=== PATIENT | male | born 1970 | race Caucasian/White ===

== ENCOUNTER 2018-10-17 15:09 | Inpatient (IN) | payer MEDICAID, OTHER ==
[~2018-10-17] VITALS: Ht 180.3 cm; Wt 92.6 kg
[2018-10-17 15:52] LABS: MEAN CORPUSCULAR HEMOGLOBIN 30.3 pg (27.5-34.5); MEAN CORPUSCULAR HGB CONC 33.5 g/dL (33.2-36.2); MEAN CORPUSCULAR VOLUME 90.4 fL (81-97); MEAN PLATELET VOLUME 8.7 fL (7.4-10.4); PLATELET COUNT 165 x10^3/uL (130-400); RED CELL DISTRIBUTION WIDTH 13.6 % (9.4-14.8)
[2018-10-17 15:56] LABS: ANION GAP 7 mmol/L (5-15); CALCIUM 8.1 mg/dL (8.5-10.1); CHLORIDE 105 mmol/L (98-107)
[2018-10-17 16:15] LABS: BASOPHILS # (AUTO) 0.03 x10^3/uL (0-0.1); BASOPHILS % (AUTO) 0 % (0-1); EOSINOPHILS # (AUTO) 0.04 x10^3/uL (0-0.4); EOSINOPHILS % (AUTO) 0 % (1-7); LYMPHOCYTES # (AUTO) 1.28 x10^3/uL (1-3.4); LYMPHOCYTES % (AUTO) 7 % (22-44); MD SCAN; MONOCYTES # (AUTO) 1.19 x10^3/uL (0.2-0.8); MONOCYTES % (AUTO) 7 % (2-9); NEUTROPHILS # (AUTO) 15.34 x10^3/uL (1.8-6.8); NEUTROPHILS % (AUTO) 86 % (42-75)
[2018-10-17] MEDS ORDERED: SODIUM CHLORIDE FLUSH 10ML SYR IVF ONE (16:30)
[2018-10-17] MEDS ORDERED: VANCOMYCIN PER PHARMACY MC ONE (16:30)
[2018-10-17] MEDS ORDERED: PHARMACOKINETIC CONSULTATION MC ONE (16:30)
[2018-10-17] MEDS ORDERED: VANCOMYCIN 1,800 MG in SODIUM CHLORIDE 0.9% 250 ML IV ONE (16:30)
[2018-10-17] MEDS ORDERED: ONDANSETRON ODT 4 MG PO PRN (17:30)
[2018-10-17] MEDS ORDERED: BISACODYL 10 MG SUPP PR PRN (17:30)
[2018-10-17] MEDS ORDERED: ONDANSETRON 2MG/ML, 2ML IVPush PRN (17:30)
[2018-10-17] MEDS ORDERED: ENALAPRILAT 1.25 MG/ML, 2ML IVPush PRN (17:30)
[2018-10-17] MEDS ORDERED: DOCUSATE 100 MG CAPSULE PO PRN (17:30)
[2018-10-17] MEDS ORDERED: hydrALAzine 20 MG/ML, 1ML IVPush PRN (17:30)
[2018-10-17 18:00] VITALS: BP 133/77
[2018-10-17 19:37] VITALS: BP 128/78
[2018-10-17] MEDS: SODIUM CHLORIDE 0.9% 1,000 ML IV SCH (20:14)
[2018-10-17] MEDS: AMPICILLIN/SULBACTAM 3 GM in SODIUM CHLORIDE 0.9% 100 ML IV SCH (20:16)
[2018-10-17] MEDS: ACETAMINOPHEN 325 MG TABLET PO PRN (20:17)
[2018-10-17] MEDS: ENOXAPARIN 40 MG/0.4 ML SQ SCH (20:17)
[2018-10-17] MEDS: KETOROLAC 30 MG/1 ML IV PRN (20:17)
[2018-10-17 21:30] VITALS: BP 113/49
[2018-10-18 02:00] VITALS: BP 116/71
[2018-10-18] MEDS: AMPICILLIN/SULBACTAM 3 GM in SODIUM CHLORIDE 0.9% 100 ML IV SCH ×4 (02:29→21:09)
[2018-10-18 02:47] VITALS: BP 128/76
[2018-10-18 05:02] LABS: ALBUMIN 2.2 g/dL (3.4-5.0); ANION GAP 7 mmol/L (5-15); BASOPHILS # (AUTO) 0.04 x10^3/uL (0-0.1); BASOPHILS % (AUTO) 0 % (0-1); CALCIUM 8.2 mg/dL (8.5-10.1); CHLORIDE 109 mmol/L (98-107); EOSINOPHILS # (AUTO) 0.09 x10^3/uL (0-0.4); EOSINOPHILS % (AUTO) 1 % (1-7); LYMPHOCYTES # (AUTO) 1.52 x10^3/uL (1-3.4); LYMPHOCYTES % (AUTO) 13 % (22-44); MD NO; MEAN CORPUSCULAR HEMOGLOBIN 30.8 pg (27.5-34.5); MEAN CORPUSCULAR HGB CONC 33.9 g/dL (33.2-36.2); MEAN CORPUSCULAR VOLUME 90.9 fL (81-97); MONOCYTES # (AUTO) 1.17 x10^3/uL (0.2-0.8); MONOCYTES % (AUTO) 10 % (2-9); NEUTROPHILS # (AUTO) 9.28 x10^3/uL (1.8-6.8); NEUTROPHILS % (AUTO) 77 % (42-75); PLATELET COUNT 154 x10^3/uL (130-400); RED BLOOD COUNT 4.34 x10^6/uL (4.38-5.82); RED CELL DISTRIBUTION WIDTH 13.7 % (9.4-14.8)
[2018-10-18 05:15] LABS: ALANINE AMINOTRANSFERASE 52 U/L (12-78); ALKALINE PHOSPHATASE 98 U/L (45-117); BILIRUBIN,TOTAL 0.5 mg/dL (0.2-1.0); CHOL/HDL RATIO 4.2; CHOLESTEROL, TOTAL 135 mg/dL (140-239); HDL CHOL % 24 % (26-37); HDL CHOLESTEROL (DIRECT) 32 mg/dL (40-60); LDL CHOLESTEROL,CALCULATED 72 mg/dL (54-169); LDL/HDL RATIO 2.3 (0.5-3.0); TOTAL PROTEIN 5.9 g/dL (6.4-8.2); TRIGLYCERIDES 154 mg/dL (50-200); VLDL CHOLESTEROL 31 mg/dL (0-25)
[2018-10-18] MEDS: SODIUM CHLORIDE 0.9% 1,000 ML IV SCH ×2 (06:05→16:31)
[2018-10-18] MEDS ORDERED: POTASSIUM CHLORIDE 20 MEQ TAB.ER.PRT PO ONE (06:30)
[2018-10-18 07:35] VITALS: BP 111/66
[2018-10-18] MEDS: SENNA/DOCUSATE TABLET PO SCH (09:16)
[2018-10-18] MEDS: LEVOTHYROXINE 25 MCG TABLET PO SCH (09:19)
[2018-10-18 12:29] VITALS: BP 106/54
[2018-10-18] MEDS: KETOROLAC 30 MG/1 ML IV PRN (13:41)
[2018-10-18] MEDS: HYDROcodone/APAP 5/325 TABLET PO PRN ×2 (14:44→21:09)
[2018-10-18 19:47] VITALS: BP 117/64
[2018-10-18] MEDS: ENOXAPARIN 40 MG/0.4 ML SQ SCH (20:02)
[2018-10-19 02:00] VITALS: BP 105/66
[2018-10-19] MEDS: SODIUM CHLORIDE 0.9% 1,000 ML IV SCH ×2 (02:09→12:00)
[2018-10-19] MEDS: KETOROLAC 30 MG/1 ML IV PRN (02:10)
[2018-10-19] MEDS: LEVOTHYROXINE 25 MCG TABLET PO SCH (05:18)
[2018-10-19] MEDS: HYDROcodone/APAP 5/325 TABLET PO PRN ×2 (05:18→16:18)
[2018-10-19] MEDS: AMPICILLIN/SULBACTAM 3 GM in SODIUM CHLORIDE 0.9% 100 ML IV SCH ×3 (05:18→16:00)
[2018-10-19 06:46] VITALS: BP 106/61
[2018-10-19] MEDS: SENNA/DOCUSATE TABLET PO SCH (07:51)
[2018-10-19] MEDS ORDERED: LEVO25TA2 PO (09:47)
[2018-10-19] MEDS ORDERED: ACET325T14 PO (09:47)
[2018-10-19] MEDS ORDERED: AMOX1TAB64 PO (09:47)
[2018-10-19] MEDS ORDERED: SERT25TA PO (09:47)
[2018-10-19 10:24] LABS: MEAN CORPUSCULAR HEMOGLOBIN 30.4 pg (27.5-34.5); MEAN CORPUSCULAR HGB CONC 33.3 g/dL (33.2-36.2); MEAN CORPUSCULAR VOLUME 91.2 fL (81-97); MEAN PLATELET VOLUME 8.8 fL (7.4-10.4); PLATELET COUNT 179 x10^3/uL (130-400); RED BLOOD COUNT 4.17 x10^6/uL (4.38-5.82); RED CELL DISTRIBUTION WIDTH 13.6 % (9.4-14.8)
[2018-10-19 10:25] LABS: BASOPHILS # (AUTO) 0.03 x10^3/uL (0-0.1); BASOPHILS % (AUTO) 1 % (0-1); EOSINOPHILS # (AUTO) 0.15 x10^3/uL (0-0.4); EOSINOPHILS % (AUTO) 2 % (1-7); LYMPHOCYTES # (AUTO) 1.62 x10^3/uL (1-3.4); LYMPHOCYTES % (AUTO) 27 % (22-44); MD NO; MONOCYTES # (AUTO) 0.52 x10^3/uL (0.2-0.8); MONOCYTES % (AUTO) 9 % (2-9); NEUTROPHILS # (AUTO) 3.78 x10^3/uL (1.8-6.8); NEUTROPHILS % (AUTO) 62 % (42-75)
[2018-10-19 10:40] LABS: ANION GAP 5 mmol/L (5-15); CALCIUM 8.2 mg/dL (8.5-10.1); CHLORIDE 111 mmol/L (98-107); CREATININE 0.74 mg/dL (0.7-1.3)
[2018-10-19 13:07] VITALS: BP 100/50
[2018-10-19] MEDS ORDERED: DOXY100T PO (13:18)
[2018-10-19] MEDS: ACETAMINOPHEN 325 MG TABLET PO PRN (14:07)
== END 2018-10-19 16:55 | disposition home or self-care (01) | DRG 603 ==
LOC: ED 16:36 → EDIP 16:59 → UNDOADMIN 17:13 → EDIP 17:13 → 3NE 18:44
PROVIDERS: ADMIT Internal Medicine; ATTEND Internal Medicine
DX: L03.116 Cellulitis of left lower limb (principal); F15.90 Other stimulant use, unspecified, uncomplicated; F32.9 Major depressive disorder, single episode, unspecified; E87.6 Hypokalemia; A49.01 Methicillin susceptible Staphylococcus aureus infection, unspecified site; E03.9 Hypothyroidism, unspecified; Z87.891 Personal history of nicotine dependence
CPT/HCPCS: 36415; 80048; 80053; 80061; 83605; 83735; 84145; 84439; 84443; 85025; 87040; 87070; 87077; 87147; 87186; 87205; G0378; J0295; J1650; J1885; J3370; J7030; J7050

== ENCOUNTER 2018-10-19 21:57 | Emergency (ER) | payer MEDICAID, OTHER ==
[~2018-10-19] VITALS: Ht 180.3 cm; Wt 89.0 kg
[~2018-10-19 21:57] MED LIST: ACET325T14 PO; AMOX1TAB64 PO; DOXY100T PO; LEVO25TA2 PO; SERT25TA PO
[2018-10-19 22:00] VITALS: BP 140/94
--- NOTE | 2018-10-19 22:33 | NUR ---
PT GIVEN DC INSTRUCTIONS AND SCRIPTS. PT EDUCATED REGARDING DC MEDICATIONS. PT WHEELED TO DC WITH PT'S . NO ACUTE DISTRESS AT DC.
== END 2018-10-19 22:41 | disposition home or self-care (01) ==
LOC: ED 22:37
DX: L03.116 Cellulitis of left lower limb (principal); E03.9 Hypothyroidism, unspecified; F32.9 Major depressive disorder, single episode, unspecified
CPT/HCPCS: 99283

== ENCOUNTER 2019-08-05 00:39 | Emergency (ER) | payer MEDICAID ==
[~2019-08-05] VITALS: Ht 180.3 cm; Wt 87.0 kg
[2019-08-05 00:46] VITALS: BP 128/80
--- NOTE | 2019-08-05 01:46 | NUR ---
pt to room from lobby
[2019-08-05] MEDS ORDERED: LIDOCAINE-MPF 1%, 5ML ONE (02:27)
[2019-08-05] MEDS ORDERED: HYDROcodone/APAP 5/325 TABLET ONE (02:28)
[2019-08-05] MEDS ORDERED: LIDOCAINE 1%, 10ML INFIL ONE (02:30)
[2019-08-05] MEDS ORDERED: HYDROcodone/APAP 5/325 TABLET PO ONE (02:30)
--- NOTE | 2019-08-05 02:50 | NUR ---
RN to bedside, administered medications (see MAR) and set up for synovial fluid draw. Provider to bedside for synovial fluid draw. Fluid drawn and hand carried to laboratory. Patient provided and oriented to call light system. All questions answered, awaiting results.
[2019-08-05] MEDS ORDERED: SULFAMETH./TRIMETHOPRIM DS 800MG/160MG TABLET PO ONE (05:00)
[2019-08-05] MEDS ORDERED: CEPHALEXIN 500 MG CAPSULE PO ONE (05:00)
== END 2019-08-05 04:51 | disposition home or self-care (01) ==
LOC: ED 04:45
DX: L03.115 Cellulitis of right lower limb (principal); Z76.0 Encounter for issue of repeat prescription; E05.90 Thyrotoxicosis, unspecified without thyrotoxic crisis or storm; F17.200 Nicotine dependence, unspecified, uncomplicated
CPT/HCPCS: 20605; 85810; 89050; 89060; 99284

== ENCOUNTER 2019-08-11 12:53 | Inpatient (IN) | payer MEDICAID ==
[~2019-08-11] VITALS: Ht 180.3 cm; Wt 85.3 kg
--- NOTE | 2019-08-11 13:18 | NUR ---
requested records from [facility]
[2019-08-11] MEDS ORDERED: HYDROcodone/APAP 5/325 TABLET PO ONE (13:30)
[2019-08-11] MEDS ORDERED: KETOROLAC 30 MG/1 ML IM ONE (13:30)
[2019-08-11] MEDS ORDERED: KETOROLAC 30 MG/1 ML ONE (13:42)
[2019-08-11] MEDS ORDERED: HYDROcodone/APAP 5/325 TABLET ONE (13:42)
--- NOTE | 2019-08-11 13:53 | NUR ---
2nd request for records from [facility]
--- NOTE | 2019-08-11 14:17 | NUR ---
received records from [facility]
[2019-08-11] MEDS ORDERED: SODIUM CHLORIDE FLUSH 10ML SYR IVF ONE (14:30)
[2019-08-11 14:41] LABS: BASOPHILS # (AUTO) 0.04 x10^3/uL (0-0.1); BASOPHILS % (AUTO) 0 % (0-1); EOSINOPHILS # (AUTO) 0.09 x10^3/uL (0-0.4); EOSINOPHILS % (AUTO) 1 % (1-7); LYMPHOCYTES # (AUTO) 1.54 x10^3/uL (1-3.4); LYMPHOCYTES % (AUTO) 14 % (22-44); MD NO; MEAN CORPUSCULAR HEMOGLOBIN 31.3 pg (27.5-34.5); MEAN CORPUSCULAR HGB CONC 33.2 g/dL (33.2-36.2); MEAN CORPUSCULAR VOLUME 94.3 fL (81-97); MEAN PLATELET VOLUME 8.4 fL (7.4-10.4); MONOCYTES # (AUTO) 0.79 x10^3/uL (0.2-0.8); MONOCYTES % (AUTO) 7 % (2-9); NEUTROPHILS # (AUTO) 8.35 x10^3/uL (1.8-6.8); NEUTROPHILS % (AUTO) 77 % (42-75); PLATELET COUNT 251 x10^3/uL (130-400); RED BLOOD COUNT 5.08 x10^6/uL (4.38-5.82); RED CELL DISTRIBUTION WIDTH 12.6 % (9.4-14.8)
[2019-08-11 14:52] LABS: ALBUMIN 3.3 g/dL (3.4-5.0); ANION GAP 4 mmol/L (5-15); CHLORIDE 107 mmol/L (98-107); CREATININE 0.94 mg/dL (0.7-1.3)
[2019-08-11] MEDS ORDERED: VANCOMYCIN 1,800 MG in SODIUM CHLORIDE 0.9% 250 ML IV ONE (16:30)
[2019-08-11] MEDS ORDERED: VANCOMYCIN PER PHARMACY MC PRN ×2 (16:30)
[2019-08-11] MEDS ORDERED: AMPICILLIN/SULBACTAM 3 GM in SODIUM CHLORIDE 0.9% 100 ML IV ONE (16:30)
--- NOTE | 2019-08-11 16:49 | NUR ---
LACERATION TO LEFT JAW WITH SUTURES. AIR POCKETS ON RIGHT SIDE FOUND ON CT
[2019-08-11] MEDS ORDERED: ACETAMINOPHEN 325 MG TABLET PO PRN (17:00)
[2019-08-11] MEDS ORDERED: ONDANSETRON 2MG/ML, 2ML IVPush PRN (17:00)
[2019-08-11] MEDS ORDERED: IBUPROFEN 600 MG TABLET PO PRN ×2 (17:00→18:07)
[2019-08-11] MEDS ORDERED: KETOROLAC 30 MG/1 ML IV PRN ×2 (17:00→18:02)
[2019-08-11] MEDS ORDERED: ONDANSETRON ODT 4 MG PO PRN (17:00)
[2019-08-11] MEDS ORDERED: MORPHINE SULFATE 4 MG/ML, 1ML IVPush PRN (17:00)
[2019-08-11] MEDS: AMPICILLIN/SULBACTAM 3 GM in SODIUM CHLORIDE 0.9% 100 ML IV SCH ×2 (17:45→22:47)
[2019-08-11] MEDS ORDERED: OMNIPAQUE 350 MG/ML, 75ML BOTTLE ONE (17:56)
[2019-08-11] MEDS: SODIUM CHLORIDE 0.9% 1,000 ML IV SCH (18:00)
[2019-08-11] MEDS ORDERED: PHARMACOKINETIC MONITORING MC PRN (18:00)
[2019-08-11 18:12] VITALS: BP 114/75
[2019-08-11 19:15] VITALS: BP 118/72
[2019-08-11] MEDS: NICOTINE 7 MG/24 HR PATCH.TD24 TD SCH (21:00)
[2019-08-12 00:16] VITALS: BP 115/70
[2019-08-12] MEDS: SODIUM CHLORIDE 0.9% 1,000 ML IV SCH ×2 (04:23→21:12)
[2019-08-12] MEDS: AMPICILLIN/SULBACTAM 3 GM in SODIUM CHLORIDE 0.9% 100 ML IV SCH ×4 (04:23→22:39)
[2019-08-12] MEDS: LEVOTHYROXINE 25 MCG TABLET PO SCH (05:17)
[2019-08-12 05:19] LABS: BASOPHILS # (AUTO) 0.07 x10^3/uL (0-0.1); BASOPHILS % (AUTO) 1 % (0-1); EOSINOPHILS # (AUTO) 0.17 x10^3/uL (0-0.4); EOSINOPHILS % (AUTO) 2 % (1-7); LYMPHOCYTES # (AUTO) 2.11 x10^3/uL (1-3.4); LYMPHOCYTES % (AUTO) 26 % (22-44); MD NO; MEAN CORPUSCULAR HEMOGLOBIN 31.3 pg (27.5-34.5); MEAN CORPUSCULAR HGB CONC 33.1 g/dL (33.2-36.2); MEAN CORPUSCULAR VOLUME 94.7 fL (81-97); MEAN PLATELET VOLUME 8.7 fL (7.4-10.4); MONOCYTES # (AUTO) 0.65 x10^3/uL (0.2-0.8); MONOCYTES % (AUTO) 8 % (2-9); NEUTROPHILS # (AUTO) 5.08 x10^3/uL (1.8-6.8); NEUTROPHILS % (AUTO) 63 % (42-75); PLATELET COUNT 250 x10^3/uL (130-400); RED BLOOD COUNT 4.63 x10^6/uL (4.38-5.82); RED CELL DISTRIBUTION WIDTH 12.4 % (9.4-14.8)
[2019-08-12 05:20] LABS: CALCIUM 8.4 mg/dL (8.5-10.1); CHLORIDE 110 mmol/L (98-107)
[2019-08-12] MEDS: VANCOMYCIN 1,700 MG in SODIUM CHLORIDE 0.9% 250 ML IV SCH ×2 (05:21→18:27)
[2019-08-12 05:26] LABS: ALANINE AMINOTRANSFERASE 25 U/L (12-78); ALBUMIN 2.9 g/dL (3.4-5.0); ALKALINE PHOSPHATASE 49 U/L (45-117); ANION GAP 6 mmol/L (5-15); BILIRUBIN,TOTAL 0.4 mg/dL (0.2-1.0); CREATININE 0.89 mg/dL (0.7-1.3); TOTAL PROTEIN 6.8 g/dL (6.4-8.2)
[2019-08-12 08:11] VITALS: BP 117/69
[2019-08-12] MEDS ORDERED: FLU VACC QS2019-20 36MOS UP/PF 0.5 ML IM-VACC ONE (09:00)
[2019-08-12 13:34] VITALS: BP 128/72
[2019-08-12 19:22] VITALS: BP 110/65
[2019-08-12] MEDS: NICOTINE 7 MG/24 HR PATCH.TD24 TD SCH (21:00)
[2019-08-12 21:53] LABS: AMPHETAMINE SCREEN, URINE Negative (Negative); BARBITURATE SCREEN, URINE Negative (Negative); BENZODIAZEPINE SCREEN, URINE Negative (Negative); CANNABINOID SCREEN, URINE Negative (Negative); COCAINE SCREEN, URINE Negative (Negative); METHADONE SCREEN, URINE Negative (Negative); OPIATE SCREEN, URINE Negative (Negative)
[2019-08-13 02:05] VITALS: BP 121/73
[2019-08-13] MEDS: AMPICILLIN/SULBACTAM 3 GM in SODIUM CHLORIDE 0.9% 100 ML IV SCH ×2 (04:36→10:30)
[2019-08-13] MEDS: SODIUM CHLORIDE 0.9% 1,000 ML IV SCH (04:37)
[2019-08-13] MEDS: VANCOMYCIN 1,700 MG in SODIUM CHLORIDE 0.9% 250 ML IV SCH (05:51)
[2019-08-13] MEDS: LEVOTHYROXINE 25 MCG TABLET PO SCH (06:59)
[2019-08-13 08:30] VITALS: BP 117/71
[2019-08-13] MEDS ORDERED: AMOX1TAB64 PO (10:45)
== END 2019-08-13 11:40 | disposition home or self-care (01) | DRG 156 ==
LOC: ED 13:09 → EDIP 16:42 → 3N 17:43 → DCLOUNGE 08-13 11:34
PROVIDERS: ADMIT Internal Medicine; ATTEND Internal Medicine
DX: K11.3 Abscess of salivary gland (principal); D72.829 Elevated white blood cell count, unspecified; E03.9 Hypothyroidism, unspecified; F15.90 Other stimulant use, unspecified, uncomplicated; F17.210 Nicotine dependence, cigarettes, uncomplicated; M19.90 Unspecified osteoarthritis, unspecified site; M26.69 Other specified disorders of temporomandibular joint
CPT/HCPCS: 36415; 70100; 70487; 80048; 80053; 80202; 80307; 82040; 84443; 85025; 87040; 96365; 96372; 99285; G0378; J0295; J1885; J3370; Q9967; J7030; J7050

== ENCOUNTER 2020-12-28 09:59 | Emergency (ER) | payer SELFPAY ==
[~2020-12-28] VITALS: Ht 182.9 cm; Wt 97.3 kg
[2020-12-28 10:01] VITALS: BP 130/84
== END 2020-12-28 10:33 | disposition home or self-care (01) ==
LOC: ED 10:20
DX: E05.90 Thyrotoxicosis, unspecified without thyrotoxic crisis or storm (principal); Z76.0 Encounter for issue of repeat prescription
CPT/HCPCS: 99281

== ENCOUNTER 2021-01-08 01:27 | Emergency (ER) | payer SELFPAY ==
[~2021-01-08] VITALS: Ht 182.9 cm; Wt 91.5 kg
[2021-01-08 01:31] VITALS: BP 119/68
[2021-01-08] MEDS ORDERED: NEOSPORIN OINT. PKT 1 PACKET ONE (02:34)
--- NOTE | 2021-01-08 02:45 | NUR ---
ALL WOUNDS CLEANSED/DRESSED PATIENT EDUCATED ON WOUND CARE, SXS TO WATCH FOR TEACH BACK SUCCESSFUL
== END 2021-01-08 03:00 | disposition home or self-care (01) ==
LOC: ED 02:30
DX: L03.116 Cellulitis of left lower limb (principal); L03.115 Cellulitis of right lower limb; Z72.9 Problem related to lifestyle, unspecified
CPT/HCPCS: 99283

== ENCOUNTER 2021-03-31 11:11 | Emergency (ER) | payer BC, OTHER ==
[~2021-03-31] VITALS: Ht 180.3 cm; Wt 98.9 kg
[2021-03-31 11:19] VITALS: BP 128/62
[2021-03-31] MEDS ORDERED: LEVO75TA5 PO (11:40)
[2021-03-31] MEDS ORDERED: MIRT-15 PO (11:40)
[2021-03-31] MEDS ORDERED: IBUPROFEN 600 MG TABLET ONE (11:43)
[2021-03-31] MEDS ORDERED: IBUPROFEN 600 MG TABLET PO ONE (12:00)
== END 2021-03-31 12:37 | disposition home or self-care (01) ==
LOC: ED 11:33
DX: S93.492A Sprain of other ligament of left ankle, initial encounter (principal); F17.210 Nicotine dependence, cigarettes, uncomplicated; X50.0XXA Overexertion from strenuous movement or load, initial encounter; Y93.89 Activity, other specified; Y92.009 Unspecified place in unspecified non-institutional (private) residence as the place of occurrence of the external cause; Y99.8 Other external cause status
CPT/HCPCS: 99284